=== PATIENT | male | born 1970 | race Caucasian/White ===

== ENCOUNTER 2024-09-13 14:45 | Outpatient (RCR) | payer OTHER, SELFPAY | END 2025-01-11 23:59 | disposition home or self-care (01) | PROVIDERS: PCP Family Medicine; Visit Provider Orthopaedic Surgery | DX: M75.32 Calcific tendinitis of left shoulder (principal); M25.512 Pain in left shoulder; G89.29 Other chronic pain; Z51.89 Encounter for other specified aftercare | CPT/HCPCS: 97110; 97140; 97162 ==

== ENCOUNTER 2024-10-13 18:38 | Outpatient (CLI) | payer OTHER, SELFPAY ==
--- NOTE | 2024-10-13 19:00 | MR_ITS ---
[facility] [address] [facility] [address] Phone:?[phone] Fax:?[phone] Referring Physician Information: Juan Carlos Johnson M.D. [id number] [address] Phone:?[phone] Fax:?[phone] Patient:Fallon Alonso D.O.B:?1970 Sex:?Male Phone:?[phone] [facility] MRN:?[id number] Exam Date:?10/13/2024 EXAM: MRI of the LEFT SHOULDER, without contrast CLINICAL: Left shoulder pain. Evaluate for rotator cuff tear. COMPARISONS: X-rays 01/27/2024. TECHNICAL: Multiplanar multisequence MRI of the left shoulder was obtained. SEDATION: None. CONTRAST: None. FINDINGS: Rotator cuff: Supraspinatus/Infraspinatus: There is mild tendinosis of the distal supraspinatus and infraspinatus tendons. There is minimal thin linear partial interstitial insertional tearing of the distal infraspinatus tendon with minimal focal partial interstitial insertional tearing of the posterior distal supraspinatus tendon also noted on coronal series 5 image 13. No significant fatty atrophy of the muscles. Teres minor: No tendinosis, tear or atrophy. Subscapularis: Mild to moderate tendinosis without evidence of significant tendon tear. No fatty atrophy of the muscle. Bursae: Subacromial-subdeltoid: No significant bursal fluid. Subcoracoid: No significant bursal fluid. Coracoacromial arch: Acromion morphology: Type II. No os acromiale. Acromiohumeral space: Within normal limits. Coracohumeral space: Within normal limits. Biceps tendon, long head: No tendinosis, tendon tear or displacement. Glenohumeral joint: Physiologic volume of joint fluid. Articular cartilage: No significant chondral loss. Capsule: There is thickening and irregularity/increased signal involving the inferior glenohumeral ligament. No capsular disruption. Labrum: There is mild fraying/tearing seen to involve the superior labrum. Remainder of the labrum appears intact as visualized on this nonarthrogram exam. No perilabral cyst identified. Bones: There is prominent subchondral cystic change involving the inferior and posterior inferior glenoid. No evidence of bone marrow edema or fracture. Acromioclavicular joint: Mild changes of arthrosis. No AC joint injury/widening. IMPRESSION: 1. Mild tendinosis and minimal partial interstitial insertional tearing of the distal supraspinatus and infraspinatus tendons. Mild to moderate tendinosis of the subscapularis tendon. 2. Mild fraying/tearing involving the superior labrum. 3. Appearance of the inferior glenohumeral ligament which can be seen in patients with adhesive capsulitis. 4. Prominent degenerative subchondral cystic change involving the inferior and posterior inferior glenoid. 5. Mild AC joint arthrosis. [facility] Electronically signed on 10/14/2024 12:10:00 PM by David Ramirez D.O.
== END 2024-10-13 18:39 | disposition home or self-care (01) ==
PROVIDERS: PCP Family Medicine; Visit Provider Orthopaedic Surgery
DX: M25.512 Pain in left shoulder (principal); M75.102 Unspecified rotator cuff tear or rupture of left shoulder, not specified as traumatic; S43.432A Superior glenoid labrum lesion of left shoulder, initial encounter; M19.012 Primary osteoarthritis, left shoulder
CPT/HCPCS: 73221